=== PATIENT | female | born 1945 | race Caucasian/White ===

== ENCOUNTER 2019-02-10 07:54 | Day surgery (SDC) | payer MEDICARE, OTHER ==
[2019-02-10] MEDS ORDERED: Propofol 200 MG/20 ML SDV IV ONE (07:55)
[2019-02-10] MEDS ORDERED: Glycopyrrolate 0.2 MG/ML 5 ML MDV IV ONE (07:55)
[2019-02-10] MEDS ORDERED: Sodium Chloride 0.9% 10 ML Syringe FLUSH PRN (08:00)
[2019-02-10] MEDS: Lactated Ringers 1,000 ML IV SCH ×2 (08:20→09:46)
--- NOTE | 2019-02-10 09:59 | PCM.HP ---
H&P History of Present Illness - General Date of Service: 02/10/19 (]) Admit Problem/Dx: Admission Diagnosis/Problem Admission Diagnosis/Problem Esophagogastroduodenoscopy Source of Information: Patient, Old Records History Limitations: Reports: No Limitations - History of Present Illness Initial Comments - Free Text/Narative: Here for EGD for unexplained Nausea and Vomiting. Also here for screening colonoscopy. - Related Data Allergies/Adverse Reactions: Allergies Allergy/AdvReac Type Severity Reaction Status Date / Time No Known Allergies Allergy Verified 02/09/19 12:24 Home Medications: Home Meds Lisinopril/Hydrochlorothiazide [Lisinopril-Hctz 10-12.5 mg Tab] 0.5 tab PO BEDTIME 02/09/19 [History] Ondansetron HCl [Zofran] 4 mg PO Q8H PRN 02/09/19 [History] Past Medical History HEENT History: Reports: Impaired Vision, Sinusitis Cardiovascular History: Reports: Hypertension Respiratory History: Reports: None Gastrointestinal History: Reports: None Other Gastrointestinal History: CHRONIC DIARRHEA, NAUSEA AND VOMITING Genitourinary History: Reports: Chronic Renal Insuffiency PATIENT SAFETY TECH History: Reports: Other OB/BYN History: IV PARA IV Musculoskeletal History: Reports: None Neurological History: Reports: None Psychiatric History: Reports: None Endocrine/Metabolic History: Reports: None Hematologic History: Reports: None Immunologic History: Reports: None Oncologic (Cancer) History: Reports: None Dermatologic History: Reports: None - Infectious Disease History Infectious Disease History: Reports: Chicken Pox, Measles, Mumps - Past Surgical History Head Surgeries/Procedures: Reports: None GI Surgical History: Reports: Cholecystectomy Social & Family History - Family History GI: Reports: None - Tobacco Use Smoking Status *Q: Never Smoker - Caffeine Use Caffeine Use: Reports: Coffee - Recreational Drug Use Recreational Drug Use: No Drug Use in Last 12 Months: No H&P Review of Systems - Review of Systems: Review Of Systems: ROS reveals no pertinent complaints other than HPI. Exam - Exam Exam: See Below - Vital Signs Vital Signs: Last Vital Signs Temp 97.7 F 02/10/19 08:13 Pulse 86 02/10/19 08:13 Resp 18 02/10/19 08:13 BP 132/71 02/10/19 08:13 Pulse Ox 98 02/10/19 08:13 Weight: 88.451 kg - Exam General: Alert, Oriented Lungs: Clear to Auscultation, Normal Respiratory Effort Cardiovascular: Regular Rate, Regular Rhythm GI/Abdominal Exam: Soft, Non-Tender Problem List Initiated/Reviewed/Updated: Yes Orders Last 24hrs: Active Orders 24 hr Category Date Time Status Patient Status [ADT] Routine ADT 02/10/19 08:00 Ordered Patient to Empty Bladder [RC] ASDIRECTED Care 02/10/19 08:00 Active Verify Patient Consent Obtain [RC] ASDIRECTED Care 02/10/19 08:00 Active Nothing Per Oral Diet [DIET] Diet 02/09/19 Dinner Ordered Lactated Ringers [Ringers, Lactated] 1,000 ml Med 02/10/19 08:00 Active IV ASDIRECTED Sodium Chloride 0.9% [Saline Flush] Med 02/10/19 08:00 Active 10 ml FLUSH ASDIRECTED PRN Peripheral IV Insertion Adult [OM.PC] Routine Oth 02/10/19 08:00 Ordered Resuscitation Status Routine Resus Stat 02/09/19 12:19 Ordered Medication Orders Lactated Ringer's (Ringers, Lactated) 1,000 mls @ 125 mls/hr IV ASDIRECTED JORGE L Last Admin: 02/10/19 09:46 Dose: 125 mls/hr Infusion: 02/10/19 09:46 Dose: 125 mls/hr Admin: 02/10/19 08:20 Dose: 125 mls/hr Sodium Chloride (Saline Flush) 10 ml FLUSH ASDIRECTED PRN PRN Reason: Keep Vein Open Assessment/Plan Comment:: A) Vomitting, colon screening P) OK to proceed with EGD and Colonoscopy
[2019-02-10] MEDS ORDERED: Simethicone Drops 40 MG/0.6 ML 30 ML Bottle ONE (10:23)
--- NOTE | 2019-02-10 10:31 | PCM.OPNOTE ---
- General Post-Op/Procedure Note Date of Surgery/Procedure: 02/10/19 Operative Procedure(s): EGD with Bx. Colonoscopy Findings: Esophagitis Pre Op Diagnosis: Vomitting. Colon Screening Post-Op Diagnosis: Same Anesthesia Technique: MAC Primary Surgeon: Luis Rivas Complications: None Condition: Good
[2019-02-10 12:11] VITALS: BP 138/78
--- NOTE | 2019-02-11 09:32 | OR ---
DATE OF OPERATION: 02/10/2019 SURGEON: Luis Rivas MD PREOPERATIVE DIAGNOSES: 1. Unexplained vomiting. 2. Colon screening. POSTOPERATIVE DIAGNOSES: 1. Esophagitis. 2. Normal colonoscopy. PROCEDURES: 1. EGD with biopsy. 2. Colonoscopy. ANESTHESIA: IV sedation. PROCEDURE IN DETAIL: The patient was brought to the procedure room, where she was placed on her left side and IV sedation administered. Oral bite block was placed and the upper endoscope advanced into the esophagus under direct vision without difficulty. Vocal cords were viewed and were normal. The esophagus had mild diffuse inflammation throughout all segments. There are white patches throughout, measuring up to 2-3 mm in diameter. This could represent Elaina esophagitis. I did take a sample of this for ROBER and also biopsies for pathology. The stomach and duodenum were normal in all their segments. Retroflexion was normal. Air was removed and the scope withdrawn. The patient tolerated this portion of the procedure well. Next, colonoscopy was performed. After digital rectal exam was performed which was normal, the colonoscope was inserted and advanced to the level of the cecum without difficulty. Cecal position was confirmed by identifying the appendiceal lumen and ileocecal valve. Prep was good and surfaces were well visualized. Upon withdrawing the scope, the ascending, transverse, and descending colon were normal in appearance. The sigmoid colon and rectum were normal. Retroflexion was normal. Air was removed and the scope withdrawn. The patient tolerated the procedure well and returned to recovery in stable condition. FOLLOWUP: The patient will follow up with Fabby Patten next week for ongoing management and review of biopsies. She should undergo routine colon screening again in 10 years. /[id number] DAVID/JAMES CC: Анна Patten, JL
== END 2019-02-10 12:00 | disposition home or self-care (01) ==
LOC: FB.SDS 07:54
PROVIDERS: ATTEND Surgery
DX: Z12.11 Encounter for screening for malignant neoplasm of colon (principal); K22.10 Ulcer of esophagus without bleeding; I12.9 Hypertensive chronic kidney disease with stage 1 through stage 4 chronic kidney disease, or unspecified chronic kidney disease; N18.9 Chronic kidney disease, unspecified; M54.5 Low back pain; R30.0 Dysuria; Z79.899 Other long term (current) drug therapy
CPT/HCPCS: 00813; 43239; 87220; 88305; 88312; 88313; A9270; G0121; J2704; J3490; J7120